=== PATIENT | female | born 1960 | race Caucasian/White ===

== ENCOUNTER 2019-07-01 08:20 | Outpatient (REF) | payer MEDICARE, MEDICAID, SELFPAY ==
[2019-07-01 10:14] LABS: Estmated Average Glucose 137; Hemoglobin A1C 6.4 % (4.0-6.0)
[2019-07-01 14:00] LABS: Chol HDL Ratio 3.71 mg/dL (0.0-4.40); Cholesterol 304 mg/dL (0-200); Glucose 93 mg/dL (65-115); HDL Cholesterol 82 mg/dL (60-100); LDL Cholesterol Calculated 206 mg/dL (50-129); LDL HDL Ratio 2.51 RATIO (0.00-3.22); Triglycerides 82 mg/dL (0-150)
== END 2019-07-01 08:21 | disposition home or self-care (01) ==
LOC: LAB 08:20
PROVIDERS: Family Provider Internal Medicine; Visit Provider Dermatology
DX: Z01.89 Encounter for other specified special examinations (principal)
CPT/HCPCS: 80061; 82947; 83036